=== PATIENT | female | born 1980 | race African-American/Black ===

== ENCOUNTER 2025-08-09 09:59 | Outpatient (AMB) | payer MEDICAID, SELFPAY ==
--- NOTE | 2025-08-09 10:02 | GYNCLNT_ITS ---
Vital Signs 08/09/25 10:15 Height 1.79 m Height Method Stated Weight 109.826 kg Weight Measurement Method Standing Scale BMI 34.2 BP 128/87 H Blood Pressure Source Automatic Cuff Blood Pressure Location Left Upper Arm Position Sitting Respiration 14 Pulse 67 Pulse Source Monitor Temp 97.9 F Temp Source Oral Pulse Oximetry (%) 98 Oxygen Delivery Method Room Air Allergies/Home Meds Allergies & Medications Allergies Sulfa (Sulfonamide Antibiotics) Allergy (Verified 08/09/25 10:16) Medication Reconciliation No Known Home Medications 08/09/25 [History Confirmed 08/09/25] Intake Visit Data Collection New Patient or Established: New Patient (never been to [facility]) Reason for Visit:: OVARIAN CYST Seen by Clinical Staff ONLY (RN/MA): No Engineer And Geologist Required: No Do You Feel Safe at Home: Yes Authorities Contacted: N/A PCP or OBGYN visit in last 3 months: Yes Hx Now: No Are you currently on any form of Control: Yes Last menstrual period: 07/07/25 Pain Present Currently: No Pain Scale Used: Cabrera-Bustos/Numerical Pain scale:: 0 Smoking Status Smoking Status: Never smoker Immunizations Flu Vaccine in the Last 12 Months: Yes Flu Vaccine Exclusion Criteria: Already Received 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 1. Little interest or pleasure in doing things: not at all 2. Feeling down, depressed, or hopeless: not at all Total score: 0 PHQ-9 3. Trouble falling or staying asleep, or sleeping too much: Not at all 4. Feeling tired or having little energy: Not at all 5. Poor appetite or overeating: Not at all 6. Feeling bad about yourself - or that you are a failure or have let yourself or your family down: Not at all 7. Trouble concentrating on things, such as reading the newspaper or watching television: Not at all 8. Moving or speaking so slowly that other people could have noticed? - Or the opposite - being so fidgety or restless that you have been moving around a lot more than usual: not at all 9. Thoughts that you would be better off or of hurting yourself in some way: Not at all Total score: 0 Source: Developed by Drs. Williams Kelly, Alejandra Rivera, Gianluca Magana and colleagues, with an educational mily from [employer]. Depression screen completed yes Social History Tobacco History Smoking Status: Never smoker Domestic Abuse History Do You Feel Safe at Home: Yes History of Present Illness HPI Narrative 44-year-old 4 para 4 with a referral for history of ovarian cyst in the left side. Patient had made an appointment with her primary care because of a pain that was in her left side mostly she felt it when bending over folding forward at the waist. And the pain was enough to make her catch her breath and pay attention to the pain. Right now walking she says her pain is 1 out of 10. She has Nexplanon for contraception. She has had Nexplanon in for a year but she has been using it for 5 years. She is happy with the method she has some irregular bleeding and spotting with the Nexplanon. Her periods anywhere from a month to 3 weeks. Her last Pap was December 2024 and it was normal. Patient had a pelvic ultrasound done at [facility] she does not have the results. But she showed them to me in her portal. History of hypertension. She takes 10 mg of amlodipine at. She also takes iron and vitamin K MD daily and B12. Denies social habits. Review of Systems Review of Systems Systems Reviewed: All systems reviewed, normal except as documented Exam Narrative Physical exam: Abdomen soft. Nontender. No rebound tenderness. No complaints of pain with palpating lower abdominal/pelvic area. General Limitations: no limitations General Appearance: alert, in no apparent distress, comfortable, cooperative, healthy appearing, well developed and well groomed Head Head exam: atraumatic, normocephalic and normal inspection Neck Neck exam: Present normal inspection, full ROM and trachea midline Chest Chest inspection: Present normal inspection and symmetric chest wall rise Resp Respiratory exam: Present normal lung sounds bilaterally Card Cardiovascular exam: Present regular rate, normal rhythm and normal heart sounds Abdominal Abdominal exam: Present soft and normal bowel sounds Results Objective Imaging: per patient portal: uterus: 8.4x4.9, endometrial stripe: 2.6, r ovary, normal size. Left ovary: 12 cm, large septated cyst, 12.6x5.5x2.9 Office Procedures OBC Clinic LOC & Office Proc's Nursing/Assessment Patient Status: Established Patient OB Clinic Nursing Assessment: Medication Reconciliation, Update PMH in EMR and Vital Signs OB Clinic Coordination of Care: Complex Care and Chronic Disease 1-5, Consent,records obtained, informed consent, Education Simp Pt/Fam, Lab and Imaging orders, Results/Orders obtained and Staff clarify orders Established Patient Charge Established Patient Point Assignment: 105 Established Patient Point Charge: EP Level 3 (80-115) Assessment & Plan Diagnosis / Problem List (1) Left ovarian cyst: Status: Acute Plan History obtained. Patient is not using or needing [id number] medication but I advised Tylenol ibuprofen as needed. And I consulted with OB and I will schedule patient for ovarian cyst management with the PHOTOENGRAVING PRINTER Additional Plan Follow Up: 2 Weeks (f/u ovarian cyst)
[2025-08-09 10:15] VITALS: BP 128/87; PULSE 67; RESP 14; TEMP 36.6; O2SAT 98; BMI 34.2
== END 2025-08-09 10:55 | disposition home or self-care (01) ==
LOC: HODSOBC 09:59
PROVIDERS: Supervising Provider Advanced Practice Midwife; Visit Provider Advanced Practice Midwife
DX: N83.202 Unspecified ovarian cyst, left side (principal)
CPT/HCPCS: 99213; G0463

== ENCOUNTER 2025-09-06 10:45 | Outpatient (AMB) | payer MEDICAID, SELFPAY ==
--- NOTE | 2025-09-06 11:01 | AMB.GYNCLNOT ---
Vital Signs 09/06/25 11:02 Height 1.79 m Height Method Stated Weight 110.393 kg Weight Measurement Method Standing Scale BMI 34.4 BP 132/85 H Blood Pressure Source Automatic Cuff Blood Pressure Location Left Upper Arm Position Sitting Respiration 18 Pulse 70 Pulse Source Monitor Temp 97.2 F Temp Source Oral Pulse Oximetry (%) 98 Oxygen Delivery Method Room Air Allergies/Home Meds Allergies & Medications Allergies Sulfa (Sulfonamide Antibiotics) Allergy (Verified 09/06/25 11:03) Medication Reconciliation No Known Home Medications 08/09/25 [History Confirmed 09/06/25] Intake Visit Data Collection New Patient or Established: Established Patient (seen at [facility] within 3 years) Reason for Visit:: PEARLER Seen by Clinical Staff ONLY (RN/MA): No Speech And Language Tutor Required: No Do You Feel Safe at Home: Yes Authorities Contacted: N/A PCP or OBGYN visit in last 3 months: Yes Date of Last PCP or OBGYN visit: 08/09/25 Hx Now: Yes Are you currently on any form of Control: No Pain Present Currently: No Pain Scale Used: Cabrera-Bustos/Numerical Pain scale:: 0 Smoking Status Smoking Status: Never smoker Immunizations Flu Vaccine in the Last 12 Months: Yes Flu Vaccine Exclusion Criteria: Already Received Identifier Horse history Identifier Horse History Menstrual regularity: regular Flow: normal Monthly: Yes Age at menarche: 12 Menopausal: No Currently sexually active: Yes Questionnaires Covid-19 Vaccine Questionnaire Has patient been vacinated for Covid-19 Have you been vacinated for Covid-19: Yes PHQ-9 PHQ-2 Over the last 2 weeks, how often have you been bothered by any of the following problems? 1. Little interest or pleasure in doing things: not at all 2. Feeling down, depressed, or hopeless: not at all Total score: 0 PHQ-9 3. Trouble falling or staying asleep, or sleeping too much: Not at all 4. Feeling tired or having little energy: Not at all 5. Poor appetite or overeating: Not at all 6. Feeling bad about yourself - or that you are a failure or have let yourself or your family down: Not at all 7. Trouble concentrating on things, such as reading the newspaper or watching television: Not at all 8. Moving or speaking so slowly that other people could have noticed? - Or the opposite - being so fidgety or restless that you have been moving around a lot more than usual: not at all 9. Thoughts that you would be better off or of hurting yourself in some way: Not at all Total score: 0 If you checked off any problems, how difficult have these problems made it for you to do your work, take care of things at home, or get along with other people?: not difficult at all Source: Developed by Drs. Williams Kelly, Alejandra Rivera, Gianluca Magana and colleagues, with an educational mily from [employer]. Depression screen completed yes Social History Living Situation History Marital Status: Single Lives With: Family Housing: House Tobacco History Smoking Status: Never smoker Second Hand Smoke Exposure: No Alcohol History Alcohol Intake: Never Domestic Abuse History Do You Feel Safe at Home: Yes History of Present Illness HPI Narrative Kaitlin Sweet presents for follow-up on an ovarian cyst identified on pelvic ultrasound performed a few months ago at [facility]. She reports current symptoms including difficulty bending, pressure sensation, and spasms that extend to her leg. The patient experiences abnormal bleeding after intercourse and has irregular periods, which she attributes to her Nexplanon contraceptive device. She has been attending therapy for lower back pain, which has worsened over the past year. She believes this worsening pain is likely due to the cyst pressing on her sciatic nerve. 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 During physical examination, she reported no pain but noted a noticeable pressure and space-occupying sensation. The patient has been using Nexplanon contraception, which causes irregular periods and abnormal bleeding after intercourse. ROS: Genitourinary: Positive for abnormal bleeding after intercourse and irregular periods. Musculoskeletal: Positive for lower back pain, which has worsened over the past year. Neurological: Positive for spasms extending to the leg. - Pelvic ultrasound ([facility]): Uterus 8.4 x 4.9 cm, endometrial stripe 2.6 cm, right ovary normal, left ovary large septated cyst measuring 12.6 x 5.5 x 2.9 cm Exam General General Appearance: alert, in no apparent distress and healthy appearing Head Head exam: atraumatic Neck Neck exam: Present normal inspection and trachea midline Chest Chest inspection: Present normal inspection and symmetric chest wall rise External exam: Present normal external exam; Absent tenderness Neuro Neurological exam: Present oriented X3 Psych Psychiatric exam: Present normal affect and normal mood Office Procedures OBC Clinic LOC & Office Proc's Nursing/Assessment Patient Status: Established Patient OB Clinic Nursing Assessment: Medication Reconciliation, Update PMH in EMR and Vital Signs OB Clinic Coordination of Care: Consent,records obtained, informed consent, Education Simp Pt/Fam, Lab and Imaging orders, Results/Orders obtained and Staff clarify orders Established Patient Charge Established Patient Point Assignment: 80 Established Patient Point Charge: EP Level 3 (80-115) Assessment & Plan Diagnosis / Problem List (1) Left ovarian cyst: Status: Acute (2) Abnormal uterine and vaginal bleeding, unspecified: Status: Acute Plan Large Septated Ovarian Cyst: - 12.6 by 5.5 by 2.9 centimeters septated cyst in left ovary on pelvic ultrasound. - Symptoms of difficulty bending, pressure sensation, and spasms extending to leg. - Lower back pain worsened over past year, likely due to cyst pressing on sciatic nerve. - Physical examination reveals pressure and space-occupying sensation without pain. Plan: - Laparoscopic surgery for cyst removal indicated for cysts larger than 10 centimeters. - Submit surgery authorization today with approximately one week for insurance approval. - Book surgery date after insurance approval with minimum 2 weeks downtime recommended. - Obtain new ultrasound for updated cyst size and appearance to aid in surgical planning. - Staff will call once everything is approved. - Surgical removal necessary to avoid spilling cyst fluid, test for cancer, and alleviate symptoms. Abnormal Bleeding and Irregular Periods: - Abnormal bleeding after intercourse and irregular periods. - Possibly related to Nexplanon contraceptive implant. Plan: - Address irregular bleeding due to Nexplanon post-surgery.
[2025-09-06 11:02] VITALS: BP 132/85; PULSE 70; RESP 18; TEMP 36.2; O2SAT 98; BMI 34.4
== END 2025-09-06 12:19 | disposition home or self-care (01) ==
LOC: HODSOBC 10:45
PROVIDERS: Supervising Provider Obstetrics & Gynecology; Visit Provider Obstetrics & Gynecology
DX: N83.202 Unspecified ovarian cyst, left side (principal); N93.9 Abnormal uterine and vaginal bleeding, unspecified
CPT/HCPCS: 99213; G0463